=== PATIENT | male | born 1955 | race Two or more races ===

== ENCOUNTER 2018-03-21 06:05 | Day surgery (SDC) | payer OTHER ==
[~2018-03-21 06:05] MED LIST: JANUMET 50-1,01 EACH; NORVASC5 MG; TAMS0.4C
[2018-03-21] MEDS ORDERED: ULTRACET PO (09:54)
== END 2018-03-21 11:00 | disposition home or self-care (01) ==
LOC: CIR.AMB 06:05
DX: D18.01 Hemangioma of skin and subcutaneous tissue (principal)

== ENCOUNTER 2018-04-20 23:10 | Emergency (ER) | payer OTHER ==
[~2018-04-20] VITALS: Ht 170.2 cm; Wt 99.8 kg
[~2018-04-20 23:10] MED LIST changes: +ULTRACET PO
== END 2018-04-21 12:48 | disposition home or self-care (01) ==
LOC: ER 23:10
DX: K68.11 Postprocedural retroperitoneal abscess (principal); L08.89 Other specified local infections of the skin and subcutaneous tissue